=== PATIENT | female | born 1995 | race Caucasian/White ===

== ENCOUNTER 2024-05-14 06:53 | Day surgery (SDC) | payer OTHER ==
[~2024-05-14] VITALS: Ht 167.6 cm; Wt 83.0 kg
[~2024-05-14 06:53] MED LIST: MAG100TA PO; NASA1SPR; PRED5TA PO; REFR0.5D8 OU; SIMP50IN2 SC; VITA200038 PO
[2024-05-14] MEDS ORDERED: LR 1,000 ML IV SCH (07:00)
[2024-05-14] MEDS: PHENYLEPHRINE 2.5% OPHTH SOL 2ML OD SCH (07:53)
[2024-05-14] MEDS: FLURBIPROFEN 0.03% OPHTH SOLN 2.5 ML OD SCH (07:53)
[2024-05-14] MEDS: CYCLOPENTOLATE 1% OPHTH SOLN 2ML BTL OD SCH (07:53)
[2024-05-14] MEDS: TETRACAINE 0.5% OPHTH SOLN 4ML OD SCH (07:53)
[2024-05-14] MEDS ORDERED: fentaNYL 100 MCG/2 ML INJECTION As Ordered ONE (08:29)
[2024-05-14] MEDS ORDERED: MIDAZOLAM INJ 2MG/2ML VIAL As Ordered ONE (08:29)
[2024-05-14] MEDS: LIDOCAINE 1% SDV 5ML VIAL As Ordered ONE (08:55)
[2024-05-14] MEDS: CEFUROXIME 1MG/0.1ML INTRACAMERAL INJ As Ordered ONE (08:55)
[2024-05-14 09:19] VITALS: BP 121/65; TEMP 98.7; O2SAT 98
== END 2024-05-14 09:41 | disposition home or self-care (01) ==
LOC: M SDC 06:53
PROVIDERS: ATTEND Ophthalmology
DX: H25.041 Posterior subcapsular polar age-related cataract, right eye (principal); D31.32 Benign neoplasm of left choroid; H44.112 Panuveitis, left eye; H20.11 Chronic iridocyclitis, right eye; K58.9 Irritable bowel syndrome, unspecified; Z88.8 Allergy status to other drugs, medicaments and biological substances; K21.9 Gastro-esophageal reflux disease without esophagitis
CPT/HCPCS: 66984; 81025; J0697; J2250; J3010; V2788